=== PATIENT | female | born 1985 | race Caucasian/White ===

== ENCOUNTER 2019-12-01 17:30 | Inpatient (IN) | payer OTHER ==
[2019-12-01 18:40] VITALS: BMI 29.9
[2019-12-01] MEDS ORDERED: LACTATED RINGERS SOLUTION 1,000 ML IV SCH (19:00)
[2019-12-01 19:47] LABS: BASO % 0.4 % (0-2.0); EOS % 1.8 % (0-4.5); HEMATOCRIT 37.7 % (32.4-45.2); HEMOGLOBIN 12.6 GM/dL (10.7-15.3); LYMPH % 21.9 % (8-40); MCH 28.4 pg (25.7-33.7); MCHC 33.5 g/dl (32.0-36.0); MEAN CELL VOLUME 84.9 fl (80-96); MEAN PLT VOLUME 8.6 fl (7.5-11.1); MONO % 7.7 % (3.8-10.2); NEUT % 68.2 % (42.8-82.8); PLATELET COUNT 203 K/MM3 (134-434); RBC 4.44 M/mm3 (3.60-5.2); RDW 14.7 % (11.6-15.6); WHITE BLOOD COUNT 6.2 K/mm3 (4.0-10.0)
[2019-12-01 19:52] LABS: INR 0.87 (0.83-1.09); PROTHROMBIN TIME (PATIENT) 10.2 SEC (9.7-13.0)
[2019-12-01 19:55] LABS: ACTIVATED PTT 26.7 SECONDS (25.2-36.5)
[2019-12-01 20:10] LABS: BLOOD UREA NITROGEN 16.8 mg/dL (7-18); CALCIUM 8.9 mg/dL (8.5-10.1); CREATININE 0.8 mg/dL (0.55-1.3); POTASSIUM 3.9 mmol/L (3.5-5.1)
--- NOTE | 2019-12-01 22:14 | HP ---
Past Medical History - Admission History Source: Patient - Past Medical History ...: 1 ...Para: 0 ...Term: 0 ...: 0 ...Spon : 0 ...Induced : 0 ...Living Children: 0 ...Multiple Gestation: 0 ...LMP: 03/02/19 ... Weeks Gestation by Dates: 39.1 ...EDC by Dates: 12/07/19 ...EDC by Sono: 12/07/19 - Past Surgical History Past Surgical History: Yes: None Hx Myomectomy: No Hx Transabdominal Cerclage: No - Smoking History Smoking history: Never smoked Have you smoked in the past 12 months: No - Alcohol/Substance Use Hx Alcohol Use: No Home Medications - Allergies Allergies/Adverse Reactions: Allergies Allergy/AdvReac Type Severity Reaction Status Date / Time No Known Allergies Allergy Verified 12/01/19 18:46 - Home Medications Home Medications: Ambulatory Orders No122/Iron/Folic Acid [ Multi Tablet] 1 each PO DAILY 12/01/19 Review of Systems - Review of Systems Constitutional: reports: No Symptoms Cardiovascular: reports: No Symptoms Respiratory: reports: No Symptoms Gastrointestinal: reports: No Symptoms Genitourinary: reports: Burning, Discharge Neurological: reports: No Symptoms Physical Exam - Maternity Vital Signs: Vital Signs Temperature 98.0 F 12/01/19 18:30 Pulse Rate 80 12/01/19 21:00 Respiratory Rate 20 12/01/19 21:00 Blood Pressure 119/76 12/01/19 21:00 O2 Sat by Pulse Oximetry (%) Constitutional: Yes: Well Nourished Cardiovascular: Yes: WNL Lungs: Clear to auscultation - Abdominal Exam/OB Fundal Height: 39 Number of Fetuses: Single Presentation: Vertex Contractions: Yes Regularity: Regular Intensity: Moderate Monitor Mode: External Heart Rate (range): 140 Category: I Accelerations: Uniform Decelerations: None - Vaginal Exam/OB Vaginal Bleeding: No Dilatation (cm): 1 Effacement (%): 60 Amniotic Membrane Status: Intact Presentation: Vertex/Position Station: -3 - Labs Lab Results: CBC, BMP 12/01/19 19:00 12/01/19 19:00 Hemorrhage Risk Assessment - Risk Factors Medium Risk Factors: Yes: None Risk Score: 1 Risk Level: Medium Risk Problem List - Problems (1) Gestational diabetes Code(s): O24.419 - GESTATIONAL DIABETES MELLITUS IN , UNSP CONTROL Qualifiers: Gestational diabetes mellitus control: diet-controlled (2) Herpes genitalis in women Code(s): A60.09 - HERPESVIRAL INFECTION OF OTHER UROGENITAL TRACT Assessment/Plan 33yo @ 39w1 GDMA1,Quantiferon positive, AC>85%, GBS Positive, on vaginal exam blisters in on the labia, patient very uncomfortable during exam Discussed about blisters, per patient she had it for few days, explained about effects of herpes on baby. Per patient she does not want to take any risk, either with herpes or large baby. Admit LR Labs Ancef Prepare for csection Informed and shared decision made, consent signed, prepare for surgery Peds , anesthesia informed.
[2019-12-01] MEDS ORDERED: CITRIC ACID/SODIUM CITRATE 30 ML UNIT-DOSE CUP PO ONE (22:43)
[2019-12-01] MEDS ORDERED: ONDANSETRON 4 MG/2 ML VIAL IVPUSH PRN (22:44)
[2019-12-01] MEDS ORDERED: morphine SULFATE/PF 0.5 MG/ML (2cc Syringe - QUVA) ONE (22:50)
[2019-12-01] MEDS ORDERED: SODIUM CHLORIDE 0.9% P/F 10 ML VIAL IJ ONE (23:09)
[2019-12-01] MEDS ORDERED: ceFAZolin SODIUM 1 GM VIAL ONE (23:09)
[2019-12-01] MEDS ORDERED: OXYTOCIN 10 UNITS/ML VIAL ONE (23:10)
[2019-12-01] MEDS ORDERED: KETOROLAC TROMETHAMINE 30 MG/1 ML VIAL ONE (23:13)
[2019-12-01] MEDS ORDERED: DEXAMETHASONE SOD PHOSPHATE 4 MG/1 ML VIAL ONE (23:13)
[2019-12-02] MEDS ORDERED: METHYLERGONOVINE MALEATE 0.2 MG/1 ML AMP IM PRN (00:16)
[2019-12-02] MEDS ORDERED: ACETAMINOPHEN 1000 MG/100 ML VIAL (NON FORMULARY) IVPB ONE (00:19)
--- NOTE | 2019-12-02 00:25 | OP ---
Operative Note - Note: Operative Date: 12/01/19 Pre-Operative Diagnosis: IUP @39W1D,GDMA1, LESION ON PERINEUM,R/O HERPES Operation: PRIMARY CSECTION Surgeon: Laura Mayes Geophysicist: Tracy Hutchins Anesthesia: Spinal Estimated Blood Loss (mls): 700 Operative Report Dictated: Yes
[2019-12-02] MEDS: CEFAZOLIN 1 GM/D5W 1 GM/50 ML BAG IVPB SCH ×3 (02:54→18:21)
[2019-12-02 03:20] LABS: CORD BASE EXCESS -4.4 mmol/L (0-2); CORD HCO3 23.8 mmHg (20-29); CORD PCO2 56.9 mmHg (30-78); CORD pH 7.239 (7.14-7.44)
[2019-12-02 03:29] LABS: CORD BASE EXCESS -4.8 mmol/L (0-2); CORD HCO3 22.7 mmHg (20-29); CORD PCO2 51.9 mmHg (30-78); CORD pH 7.258 (7.14-7.44)
--- NOTE | 2019-12-02 09:15 | OP ---
DATE OF OPERATION: DATE OF DICTATION: 12/02/2019 PREOPERATIVE DIAGNOSES: 1. Intrauterine at 39 weeks and 1 day. 2. Blisters/lesion on the labia, rule out herpes. 3. Gestational diabetes A1. POSTOPERATIVE DIAGNOSES: 1. Intrauterine at 39 weeks and 1 day. 2. Blisters/lesion on the labia, rule out herpes. 3. Gestational diabetes A1. PROCEDURE: Primary low transverse section with a Pfannenstiel skin incision. SURGEON: Laura Marie MD RETAIL ASSISTANT STORE MANAGER: Tracy Hutchins MD ANESTHESIA: Spinal. COMPLICATIONS: None. ESTIMATED BLOOD LOSS: 700 mL. INDICATION: A 33-year-old 1, para 0 presented to labor and delivery for induction of labor. At this time pelvic exam was done and blisters/herpetic lesions were seen on the perineum. At this point was discussed with the patient and patient will be taken to the operating room. FINDINGS: Baby boy in cephalic presentation, 9, 9. Normal tubes and ovaries. Uterus with anterior fibroid, approximately 4 x 4 cm. PROCEDURE: After explaining indication, risks, benefits and alternatives to the patient, patient was taken to the operating room. Risks of herpetic lesions were discussed with the patient. Patient opted for section. She was prepped and draped in a normal sterile fashion in the dorsal position with a leftward tilt. A Pfannenstiel skin incision was made with the scalpel and carried through the underlying layers of fascia with the Bovie. Fascia was incised in the midline and the incision extended laterally with Brown scissors. Superior aspect of the fascial incision was grasped with Lida clamp, elevated and from the underlying rectus muscles. Attention was then turned towards the inferior aspect of the incision which in a similar fashion was tented up and from the underlying rectus muscles. The rectus muscles were then in the midline, peritoneum identified and entered with Metzenbaum scissors. Peritoneum was then extended superiorly and inferiorly with good visualization of bladder and bowel. Lower uterine segment was identified and bladder flap created and incision made. Baby was in cephalic presentation and baby delivered atraumatically. Nose and mouth were suctioned. Cord was clamped and cut. Baby was handed over to waiting construction engineer. Cord gases were sent and cord blood was sent. Placenta was then removed manually and completely. Uterus was then exteriorized and cleared of all clots and debris. Uterine incision was then repaired with 0 Vicryl in a running locked fashion. A 2nd layer of the same suture was used for interrupted stitches. Uterus was then returned back into the abdomen. Surgicel was placed on the incision site for added hemostasis. Excellent hemostasis was confirmed. Peritoneum was closed with 2-0 Vicryl in a running fashion. Rectus muscle was then reapproximated with 1 Vicryl with interrupted stitches. Fascia was then closed with 1 Vicryl in a running fashion. Excellent hemostasis was confirmed throughout the procedure. Skin was closed with adrianne. Patient tolerated the procedure well. Sponge, lap and needle counts were correct x2. Ancef 2 g was given prior to surgery. Patient transferred to recovery room in stable condition. LAURA MARIE MD FT/[id number]
[2019-12-02] MEDS: valACYclovir HCL 500 MG TABLET (FP) PO SCH ×2 (11:31→21:50)
[2019-12-02] MEDS: OXYTOCIN 20 UNITS in 0.9% NS 20 UNIT/1,000 ML INFUS.BAG IV SCH ×2 (18:17)
[2019-12-02] MEDS: IBUPROFEN 600 MG TABLET (FP) PO PRN (18:19)
[2019-12-02] MEDS: SIMETHICONE 80 MG TAB.CHEW (FP) PO PRN (18:20)
--- NOTE | 2019-12-02 20:49 | PN ---
Progress Note (short form) - Note Progress Note: Anesthesia postop note POD#1, S/P primary unde spinal anesthesia with duramorph/ VSS. Ambulating. Pain well controlled. No apparent post anesthesia complications.
--- NOTE | 2019-12-02 22:43 | PN ---
Post Progress Note Post Day: 1 Type of Delivery: Primary C/S Vital Signs: Vital Signs Temperature 98.5 F 12/02/19 21:22 Pulse Rate 97 H 12/02/19 21:22 Respiratory Rate 20 12/02/19 21:22 Blood Pressure 105/69 12/02/19 21:22 O2 Sat by Pulse Oximetry (%) 95 12/02/19 18:00 Breast Exam: Yes: Soft Uterus: Yes: Fundus Firm, Fundus below umbilicus, Non-tender Incision: Yes: Dressing dry and intact Abdomen/GI: Yes: Abdomen soft, Tolerating PO Lochia: Yes: Rubra Lochia, amount: Small Perineum: Yes: Intact Activity: Ambulating - Labs Labs: CBC WBC 6.2 K/mm3 (4.0-10.0) 12/01/19 19:00 RBC 4.44 M/mm3 (3.60-5.2) 12/01/19 19:00 Hgb 12.6 GM/dL (10.7-15.3) 12/01/19 19:00 Hct 37.7 % (32.4-45.2) 12/01/19 19:00 MCV 84.9 fl (80-96) 12/01/19 19:00 MCH 28.4 pg (25.7-33.7) 12/01/19 19:00 MCHC 33.5 g/dl (32.0-36.0) 12/01/19 19:00 RDW 14.7 % (11.6-15.6) 12/01/19 19:00 Plt Count 203 K/MM3 (134-434) 12/01/19 19:00 MPV 8.6 fl (7.5-11.1) 12/01/19 19:00 Absolute Neuts (auto) 4.2 K/mm3 (1.5-8.0) 12/01/19 19:00 Neutrophils % 68.2 % (42.8-82.8) 12/01/19 19:00 Lymphocytes % 21.9 % (8-40) 12/01/19 19:00 Monocytes % 7.7 % (3.8-10.2) 12/01/19 19:00 Eosinophils % 1.8 % (0-4.5) 12/01/19 19:00 Basophils % 0.4 % (0-2.0) 12/01/19 19:00 Nucleated RBC % 0 % (0-0) 12/01/19 19:00 Assessment/Plan S/P delivery. pod # 1, tolerating oral fluids Encourage ambulation and incentive spirometer Continue management.
[2019-12-03] MEDS: SIMETHICONE 80 MG TAB.CHEW (FP) PO PRN ×4 (00:06→15:45)
[2019-12-03] MEDS: IBUPROFEN 600 MG TABLET (FP) PO PRN ×2 (00:06→15:46)
[2019-12-03] MEDS ORDERED: BISACODYL 10 MG SUPP.RECT RC PRN (00:16)
[2019-12-03] MEDS: oxyCODONE HCL 5 MG TABLET PO PRN ×3 (06:08→23:59)
[2019-12-03] MEDS: ACETAMINOPHEN 325 MG TABLET (FP) PO PRN ×3 (06:08→23:59)
[2019-12-03 07:52] LABS: RBC 3.76 M/mm3 (3.60-5.2)
[2019-12-03 08:03] LABS: BASO % 0.5 % (0-2.0); HEMATOCRIT 31.8 % (32.4-45.2); HEMOGLOBIN 10.7 GM/dL (10.7-15.3); LYMPH % 15.8 % (8-40); MCH 28.4 pg (25.7-33.7); MCHC 33.6 g/dl (32.0-36.0); MEAN CELL VOLUME 84.5 fl (80-96); MEAN PLT VOLUME 7.9 fl (7.5-11.1); MONO % 5.1 % (3.8-10.2); NEUT % 76.6 % (42.8-82.8); PLATELET COUNT 205 K/MM3 (134-434); RDW 14.7 % (11.6-15.6); WHITE BLOOD COUNT 10.2 K/mm3 (4.0-10.0)
[2019-12-03] MEDS: valACYclovir HCL 500 MG TABLET (FP) PO SCH ×2 (10:35→21:59)
[2019-12-03] MEDS: DOCUSATE SODIUM 100 MG CAPSULE (FP) PO SCH (10:36)
--- NOTE | 2019-12-03 14:19 | PN ---
Post Progress Note Post Day: 2 Type of Delivery: Primary C/S Vital Signs: Vital Signs Temperature 97.8 F 12/03/19 09:00 Pulse Rate 94 H 12/03/19 09:00 Respiratory Rate 20 12/03/19 09:00 Blood Pressure 133/66 12/03/19 09:00 O2 Sat by Pulse Oximetry (%) 95 12/02/19 18:00 Breast Exam: Yes: Soft Uterus: Yes: Fundus Firm, Fundus below umbilicus, Non-tender Incision: Yes: [place] intact Abdomen/GI: Yes: Abdominal Distention, Tolerating PO Lochia: Yes: Rubra Lochia, amount: Small Extremities: Yes: Calves non-tender Activity: Ambulating - Labs Labs: CBC WBC 10.2 K/mm3 (4.0-10.0) H 12/03/19 06:50 RBC 3.76 M/mm3 (3.60-5.2) 12/03/19 06:50 Hgb 10.7 GM/dL (10.7-15.3) 12/03/19 06:50 Hct 31.8 % (32.4-45.2) L D 12/03/19 06:50 MCV 84.5 fl (80-96) 12/03/19 06:50 MCH 28.4 pg (25.7-33.7) 12/03/19 06:50 MCHC 33.6 g/dl (32.0-36.0) 12/03/19 06:50 RDW 14.7 % (11.6-15.6) 12/03/19 06:50 Plt Count 205 K/MM3 (134-434) 12/03/19 06:50 MPV 7.9 fl (7.5-11.1) 12/03/19 06:50 Absolute Neuts (auto) 7.8 K/mm3 (1.5-8.0) 12/03/19 06:50 Neutrophils % 76.6 % (42.8-82.8) 12/03/19 06:50 Lymphocytes % 15.8 % (8-40) D 12/03/19 06:50 Monocytes % 5.1 % (3.8-10.2) 12/03/19 06:50 Eosinophils % 2.0 % (0-4.5) 12/03/19 06:50 Basophils % 0.5 % (0-2.0) 12/03/19 06:50 Nucleated RBC % 0 % (0-0) 12/03/19 06:50 Assessment/Plan S/P delivery, pod # 2, with slow return of bowel function Encourage incentive spirometer and ambulation Continue other management
[2019-12-04] MEDS: valACYclovir HCL 500 MG TABLET (FP) PO SCH ×2 (11:21→21:24)
[2019-12-04] MEDS: DOCUSATE SODIUM 100 MG CAPSULE (FP) PO SCH (11:21)
[2019-12-04] MEDS: ACETAMINOPHEN 325 MG TABLET (FP) PO PRN ×2 (11:30→22:00)
[2019-12-04] MEDS: IBUPROFEN 600 MG TABLET (FP) PO PRN (11:31)
[2019-12-04] MEDS: SIMETHICONE 80 MG TAB.CHEW (FP) PO PRN ×3 (11:32→22:00)
--- NOTE | 2019-12-04 18:32 | PN ---
Progress Note (short form) - Note Progress Note: Patient without complaints Tolerating regular diet, passing flatus Vs wnl OE- abdomen soft, no distension, positive bowel sounds Incision clean dry and intact minimal lochial flow no calf tenderness A/P- POD#3 discharge home in AM. Problem List - Problems (1) Gestational diabetes Code(s): O24.419 - GESTATIONAL DIABETES MELLITUS IN , UNSP CONTROL Qualifiers: Gestational diabetes mellitus control: diet-controlled (2) Herpes genitalis in women Code(s): A60.09 - HERPESVIRAL INFECTION OF OTHER UROGENITAL TRACT
--- NOTE | 2019-12-04 18:39 | DS ---
Physical Examination Vital Signs: Vital Signs Temperature 97.6 F 12/04/19 09:00 Pulse Rate 91 H 12/04/19 09:00 Respiratory Rate 20 12/04/19 09:00 Blood Pressure 121/81 12/04/19 09:00 O2 Sat by Pulse Oximetry (%) 95 12/02/19 18:00 Constitutional: Yes: Well Nourished Cardiovascular: Yes: WNL Respiratory: Yes: WNL Gastrointestinal: Yes: WNL, Normal Bowel Sounds Extremities: Yes: WNL Labs: CBC, BMP 12/03/19 06:50 12/01/19 19:00 Discharge Summary Problems reviewed: Yes Reason For Visit: LABOR Current Active Problems Gestational diabetes (Acute) Herpes genitalis in women (Acute) Procedures: Principal: primary csection Hospital Course: uneventful Plan of Treatment: continue valtrex pain management follow up at [facility] Wednesday12/12/19 Return to ER if severe pain, severe vaginal bleeding or any unusual symptoms Condition: Stable - Instructions Diet, Activity, Other Instructions: Regular continue valtrex pain management follow up at [facility] Wednesday12/12/19 Return to ER if severe pain, severe vaginal bleeding or any unusual symptoms Disposition: HOME - Home Medications Comprehensive Discharge Medication List: Ambulatory Orders No122/Iron/Folic Acid [ Multi Tablet] 1 each PO DAILY 12/01/19
[2019-12-04] MEDS: oxyCODONE HCL 5 MG TABLET PO PRN (21:59)
[2019-12-05 07:54] LABS: BASO % 0.4 % (0-2.0); EOS % 2.6 % (0-4.5); HEMATOCRIT 32.3 % (32.4-45.2); HEMOGLOBIN 10.6 GM/dL (10.7-15.3); LYMPH % 19.5 % (8-40); MCH 28.1 pg (25.7-33.7); MCHC 32.9 g/dl (32.0-36.0); MEAN CELL VOLUME 85.3 fl (80-96); MEAN PLT VOLUME 7.2 fl (7.5-11.1); NEUT % 71.5 % (42.8-82.8); PLATELET COUNT 282 K/MM3 (134-434); RBC 3.79 M/mm3 (3.60-5.2); RDW 14.5 % (11.6-15.6); WHITE BLOOD COUNT 8.5 K/mm3 (4.0-10.0)
[2019-12-05] MEDS: DOCUSATE SODIUM 100 MG CAPSULE (FP) PO SCH (09:26)
[2019-12-05] MEDS: SIMETHICONE 80 MG TAB.CHEW (FP) PO PRN (09:26)
[2019-12-05] MEDS: IBUPROFEN 600 MG TABLET (FP) PO PRN (09:26)
[2019-12-05] MEDS: ACETAMINOPHEN 325 MG TABLET (FP) PO PRN (09:27)
[2019-12-05] MEDS: valACYclovir HCL 500 MG TABLET (FP) PO SCH (09:27)
[2019-12-05] MEDS ORDERED: PATIENT'S OWN MEDICATION (NON-FORMULARY) (Prenatal No122/Iron/Folic Acid [Prenatal Multi T PO SCH (10:00)
[2019-12-05] MEDS ORDERED: PRENATAL VITAMINS W/ FOLIC ACID TABLET (FP) PO SCH (10:00)
[2019-12-05 11:44] VITALS: BP 113/75; PULSE 91; TEMP 98.1
--- NOTE | 2019-12-12 13:56 | PATH ---
Surgical Pathology Report Patient Name: TOÑITO ZAVALA [facility]. Rec. 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 Specimen(s) Received PLACENTA Clinical History , 39.1 weeks' gestation, rule out herpes infection Final Diagnosis PLACENTA, : MATURE THIRD TRIMESTER PLACENTA SHOWING ACUTE CHORIOAMNIONITIS. TRIVESSEL UMBILICAL CORD. HSV IMMUNOSTAIN IS NEGATIVE. Comment: Immunostain was performed at [place], [place] ([id number]). Electronically Signed Brook Ramon M.D. Gross Description The specimen is received fresh labeled placenta and is a 442 gram, 15.5 x 13.5 x 2.8 cm. placenta with attached membranes and umbilical cord. The attached membranes are person, thick, cloudy and insert marginally. The umbilical cord measures 12 cm. in length and averages 1 cm. in diameter. The cord inserts eccentrically, 2 cm. to the nearest margin. No true knots or strictures are identified. Cut surface of the umbilical cord reveals 3 vessels. The surface is munson-blue with minimal fibrin deposition and appropriate caliber vessels. The maternal surface is red-brown with focal defects. Sectioning reveals red-brown, spongy parenchyma. No lesions are identified. Archives Technician sections are submitted in three cassettes as follows: 1- membrane rolls and umbilical cord; 2-3- full thickness sections of placenta. /12/04/2019 [facility]/12/04/2019
== END 2019-12-05 17:30 | disposition home or self-care (01) | DRG 540 ==
LOC: JLDR 17:30 → J3W 12-02 02:20
PROVIDERS: ADMIT Obstetrics & Gynecology; ATTEND Obstetrics & Gynecology
PROC: 10D00Z1 Extraction of Products of Conception, Low, Open Approach (ICD-10-PCS; principal; 2019-12-02)
DX: O98.52 Other viral diseases complicating childbirth (principal); B00.9 Herpesviral infection, unspecified; O24.429 Gestational diabetes mellitus in childbirth, unspecified control; Z22.330 Carrier of Group B streptococcus; Z3A.39 39 weeks gestation of pregnancy; Z37.0 Single live birth
CPT/HCPCS: 36415; 36600; 80048; 82803; 85025; 85610; 85730; 86694; 86695; 86696; 86780; 86850; 86900; 86901; 87255; 87389; 88307-TC; U0003

== ENCOUNTER 2024-02-06 15:01 | Emergency (ER) | payer OTHER ==
[2024-02-06] MEDS ORDERED: ALPRAZolam 0.25 MG TABLET ONE (15:23)
[2024-02-06] MEDS: ALPRAZolam 1 MG TABLET PO PRN (15:25)
[2024-02-06 16:19] VITALS: BP 121/87; PULSE 88; RESP 20; TEMP 97.3; BMI 26.2
[2024-02-06 16:19] LABS: HCG,QUALITATIVE URINE Negative
[2024-02-06 16:19] LABS: ALBUMIN 4.3 g/dl (3.4-5.0); ALK PHOS 38 U/L (45-117); ANION GAP 8 mmol/L (4-13); BILIRUBIN,TOTAL 0.7 mg/dl (0.2-1); CALCIUM 9.2 mg/dl (8.5-10.1); CHLORIDE 107 mmol/L (98-107); CO2 24 mmol/L (21-32); CREATININE 0.6 mg/dl (0.6-1.3); GLUCOSE,RANDOM 96 mg/dl (74-106); HEMATOCRIT 37.4 % (32.4-45.2); HEMOGLOBIN 11.9 G/dL (10.7-15.3); MCH 27.4 pg (25.7-33.7); MCHC 31.9 g/dl (32.0-36.0); MEAN CELL VOLUME 85.9 fl (80-96); MEAN PLT VOLUME 7.6 fl (7.5-11.1); PLATELET COUNT 235.1 10^3/uL (134-434); POTASSIUM 3.7 mmol/L (3.5-5.1); RBC 4.35 10^6/uL (3.60-5.2); RDW 14.4 % (11.6-15.6); SGOT/AST 14 U/L (15-37); SGPT/ALT 12 U/L (7-52); SODIUM 139 mmol/L (136-145); TOT PROT 6.8 g/dl (6.4-8.2); WHITE BLOOD COUNT 4.4 10^3/uL (4.0-10.8)
[2024-02-06 16:38] LABS: EPITHELIAL CELLS 0-5 /hpf
[2024-02-06 16:56] LABS: PLATELET ESTIMATE ADEQUATE
== END 2024-02-06 17:24 | disposition home or self-care (01) ==
LOC: FER 15:01
DX: F41.9 Anxiety disorder, unspecified (principal); R42 Dizziness and giddiness; R29.898 Other symptoms and signs involving the musculoskeletal system; R20.2 Paresthesia of skin
CPT/HCPCS: 36415; 80053; 81003; 81015; 84443; 84703; 85027; 99283-25